=== PATIENT | male | born 1950 | race American Indian/Alaskan Native ===

== ENCOUNTER 2024-01-14 09:24 | Day surgery (SDC) | payer MEDICARE, OTHER ==
[2024-01-14] MEDS: Proparacaine 0.5% Ophth Soln 15 ML Bottle EYELF ONE ×2 (09:48→10:27)
[2024-01-14] MEDS: Moxifloxacin 0.5% Ophth Soln 3 ML Bottle EYELF ONE (09:49)
[2024-01-14] MEDS: Povidone-Iodine 5% Sterile Ophth Soln 30 ML Bottle EYELF ONE ×2 (09:50→10:28)
[2024-01-14] MEDS: Tropicamide 1% Ophth Soln 15 ML Bottle EYELF ONE (09:51)
[2024-01-14] MEDS: Timolol Maleate 0.5% Ophth Soln 5 ML Bottle EYELF ONE (09:52)
[2024-01-14] MEDS: Phenylephrine 10% Ophth Soln 5 ML Bot EYELF ONE (09:52)
[2024-01-14] MEDS: Cataract Ophth Solution EYELF ONE (09:53)
[2024-01-14] MEDS ORDERED: Sodium Chloride 0.9% 10 ML Syringe FLUSH PRN (10:15)
[2024-01-14] MEDS ORDERED: Ondansetron 4 MG/2 ML SDV IVPUSH PRN (10:15)
[2024-01-14] MEDS ORDERED: Acetaminophen/Codeine 300-30 MG Tab PO PRN (10:15)
[2024-01-14] MEDS ORDERED: Acetaminophen 325 MG Tab PO PRN (10:15)
[2024-01-14] MEDS: Diclofenac Sodium 0.1% Ophth Soln 5 ML Bottle EYELF ONE (10:28)
[2024-01-14] MEDS: Dexamethasone/Neomycin/Polymyxin B Ophth Oint 3.5 GM Tube EYELF ONE (10:28)
[2024-01-14] MEDS: Apraclonidine 0.5% Ophth Soln 5 ML Bot EYELF ONE (10:28)
[2024-01-14] MEDS: Lidocaine 1% 30 ML SDV INJECT ONE (10:29)
[2024-01-14] MEDS: Vancomycin 500 MG SDV EYELF ONE (10:29)
== END 2024-01-14 12:15 | disposition home or self-care (01) ==
LOC: DL.SDS 09:24
PROVIDERS: ATTEND Ophthalmology
DX: H25.812 Combined forms of age-related cataract, left eye (principal); I10 Essential (primary) hypertension; K21.9 Gastro-esophageal reflux disease without esophagitis; E78.5 Hyperlipidemia, unspecified; J44.9 Chronic obstructive pulmonary disease, unspecified; Z79.899 Other long term (current) drug therapy
CPT/HCPCS: A9270-GY; J3370; J3490; V2632

== ENCOUNTER 2024-01-28 07:30 | Day surgery (SDC) | payer MEDICARE, OTHER ==
[2024-01-28] MEDS: Povidone-Iodine 5% Sterile Ophth Soln 30 ML Bottle EYERT ONE ×2 (08:01→09:04)
[2024-01-28] MEDS: Phenylephrine 10% Ophth Soln 5 ML Bot EYERT ONE (08:02)
[2024-01-28] MEDS: Moxifloxacin 0.5% Ophth Soln 3 ML Bottle EYERT ONE (08:02)
[2024-01-28] MEDS: Tropicamide 1% Ophth Soln 15 ML Bottle EYERT ONE (08:02)
[2024-01-28] MEDS: Proparacaine 0.5% Ophth Soln 15 ML Bottle EYERT ONE ×2 (08:02→09:04)
[2024-01-28] MEDS: Timolol Maleate 0.5% Ophth Soln 5 ML Bottle EYERT ONE (08:02)
[2024-01-28] MEDS: Sodium Chloride 0.9% 10 ML Syringe FLUSH PRN (08:03)
[2024-01-28] MEDS: Cataract Ophth Solution EYERT ONE (08:04)
[2024-01-28] MEDS ORDERED: Acetaminophen 325 MG Tab PO PRN (08:30)
[2024-01-28] MEDS ORDERED: Acetaminophen/Codeine 300-30 MG Tab PO PRN (08:30)
[2024-01-28] MEDS ORDERED: Ondansetron 4 MG/2 ML SDV IVPUSH PRN (08:30)
[2024-01-28] MEDS: Apraclonidine 0.5% Ophth Soln 5 ML Bot EYERT ONE (09:04)
[2024-01-28] MEDS: Diclofenac Sodium 0.1% Ophth Soln 5 ML Bottle EYERT ONE (09:04)
[2024-01-28] MEDS: Lidocaine 1% 30 ML SDV INJECT ONE (09:05)
[2024-01-28] MEDS: Vancomycin 500 MG SDV EYERT ONE (09:05)
[2024-01-28] MEDS: Dexamethasone/Neomycin/Polymyxin B Ophth Oint 3.5 GM Tube EYERT ONE (09:05)
== END 2024-01-28 09:50 | disposition home or self-care (01) ==
LOC: DL.SDS 07:30
PROVIDERS: ATTEND Ophthalmology
DX: H26.8 Other specified cataract (principal); H52.209 Unspecified astigmatism, unspecified eye; J44.9 Chronic obstructive pulmonary disease, unspecified; Z91.011 Allergy to milk products
CPT/HCPCS: 66982; A9270; J3370; V2632; J3490